=== PATIENT | male | born 1985 | race American Indian/Alaskan Native ===

== ENCOUNTER 2018-10-16 02:35 | Emergency (ER) | payer OTHER ==
[2018-10-16] MEDS ORDERED: NACL 0.9% 1000 ML 1,000 ML ONE (02:46)
[2018-10-16] MEDS ORDERED: XYLOCAINE 2%/EPI 1:100,000 INFILTRATI ONE ×2 (03:28→04:00)
[2018-10-16] MEDS ORDERED: NACL 0.9% 500 ML IR ONE (03:38)
[2018-10-16] MEDS ORDERED: MORPHINE ONE (03:42)
[2018-10-16] MEDS ORDERED: MORPHINE IV ONE (04:00)
[2018-10-16] MEDS ORDERED: NACL 0.9% IR ONE (04:00)
--- NOTE | 2018-10-16 04:16 | Emergency Department Report ---
- General Chief Complaint: Wound/Laceration Stated Complaint: RIGHT ARM LACERATION Time Seen by Provider: 10/16/18 04:10 Source: patient Mode of arrival: Ambulatory Limitations: No Limitations - History of Present Illness Initial Comments: 33 y/o male present to the ER for laceration to right forearm and upper arm. Patient was moving a glass table and tripped . Patient ahs no PMH, no medication on a daily basics and NKDA. Patient is not sure of his last tetanus vaccine. - Related Data Previous Rx's Medication Instructions Recorded Last Taken Type HYDROcodone/ACETAMINOPHEN [[place] 1 each PO Q6H #6 tablet 10/16/18 Unknown Rx 5-325 Tablet] Ibuprofen [Motrin 600 MG tab] 600 mg PO Q8H PRN #21 tablet 10/16/18 Unknown Rx cephALEXin [Keflex] 500 mg PO Q12HR #20 cap 10/16/18 Unknown Rx Allergies Allergy/AdvReac Type Severity Reaction Status Date / Time No Known Allergies Allergy Verified 10/16/18 02:43 ED Review of Systems ROS: Stated complaint: RIGHT ARM LACERATION Other details as noted in HPI ED Past Medical Hx - Past Medical History Previous Medical History?: No - Surgical History Past Surgical History?: No - Social History Smoking Status: Current Some Day Smoker Substance Use Type: Alcohol, Marijuana - Medications Home Medications: Home Medications Medication Instructions Recorded Confirmed Last Taken Type HYDROcodone/ACETAMINOPHEN [[place] 1 each PO Q6H #6 tablet 10/16/18 Unknown Rx 5-325 Tablet] Ibuprofen [Motrin 600 MG tab] 600 mg PO Q8H PRN #21 tablet 10/16/18 Unknown Rx cephALEXin [Keflex] 500 mg PO Q12HR #20 cap 10/16/18 Unknown Rx ED Physical Exam - General Limitations: No Limitations General appearance: alert, in no apparent distress - Head Head exam: Present: atraumatic, normocephalic - Eye Eye exam: Present: EOMI - ENT ENT exam: Present: mucous membranes moist - Neck Neck exam: Present: normal inspection - Respiratory Respiratory exam: Present: normal lung sounds bilaterally. Absent: respiratory distress - Neurological Exam Neurological exam: Present: alert, oriented X3 - Psychiatric Psychiatric exam: Present: normal affect, normal mood - Skin Skin exam: Present: dry, intact, normal color. Absent: rash - Expanded Skin Exam Expanded Type of lesion: Present: laceration (2 laceration on right hand. ) Distribution of rash: RUE Description of rash: Present: size (5 cm on upper dorsum and 5 cm on right forearm. Active bleeding . ) ED Course Vital Signs 10/16/18 03:46 Temperature 98.1 F Pulse Rate 83 Respiratory 17 Rate O2 Sat by Pulse 97 Oximetry - Laceration /Wound Repair Right Upper Arm Wound Location: upper extremity (right) Wound Length (cm): 5 Wound's Depth, Shape: into muscle, linear Wound Explored: no foreign body removed Betadine Prep?: Yes Anesthesia: Lidocaine w/ Epi Wound Repaired With: sutures Suture Size/Type: 3:0, proline Number of Sutures: 7 Sterile Dressing Applied?: Yes Progress: patient tolerated well Right Arm Wound Location: upper extremity (right) Wound Length (cm): 4 Wound's Depth, Shape: into muscle, linear Wound Explored: no foreign body removed Irrigated w/ Saline (ccs): 250 Betadine Prep?: Yes Volume Anesthetic (ccs): 12 Wound Debrided: minimal Suture Size/Type: 3:0, proline Number of Sutures: 8 Layer Closure?: No Sterile Dressing Applied?: Yes Progress: patient tolerated well. ED Medical Decision Making - Radiology Data Radiology results: report reviewed Patient: JESSE BAUER MR#: [id number] : 1985 Acct:[id number] Age/Sex: 33 / M ADM Date: 10/16/18 Loc: ED Attending Dr: Ordering Physician: PATSY ALMODOVAR Date of Service: 10/16/18 Procedure(s): XR humerus 2+V RT Accession Number(s): [id number] cc: PATSY ALMODOVAR Fluoro Time In Minutes: PROCEDURE: RIGHT HUMERUS TECHNIQUE: RIGHT humerus radiographs, AP and lateral views. CPT 34182 HISTORY: Trauma COMPARISONS: None . FINDINGS: Fracture (s) and/or Dislocation(s): None . Joint space(s): Normal . Soft tissues: Normal . Bone mineralization: Normal . Foreign bodies: None . IMPRESSION: Normal Examination . This document is electronically signed by Araceli Ortega MD., October 16 2018 04:15:40 AM ET Transcribed By: CO Dictated By: ARACELI ORTEGA MD Electronically Authenticated By: ARACELI ORTEGA MD Signed Date/Time: 10/16/188 DD/ 9 TD/TT: 10/16/18410 Patient: JESSE BAUER MR#: [id number] : 1985 Acct:[id number] Age/Sex: 33 / M ADM Date: 10/16/18 Loc: ED Attending Dr: Ordering Physician: PATSY ALMODOVAR Date of Service: 10/16/18 Procedure(s): XR forearm RT Accession Number(s): [id number] cc: PATSY ALMODOVAR Fluoro Time In Minutes: PROCEDURE: RIGHT FOREARM TECHNIQUE: RIGHT forearm radiographs, AP and lateral views. CPT 76241 HISTORY: Trauma COMPARISONS: None . FINDINGS: Fracture (s) and/or Dislocation(s): None . Joint space(s): Normal . Soft tissues: There is soft tissue swelling and laceration of the proximal forearm. . Bone mineralization: Normal . Foreign bodies: None . IMPRESSION: There is no acute bony abnormality. .There is soft tissue swelling and laceration of the proximal forearm. . This document is electronically signed by Araceli Ortega MD., October 16 2018 04:14:13 AM ET Transcribed By: CO Dictated By: ARACELI ORTEGA MD Electronically Authenticated By: ARACELI ORTEGA MD Signed Date/Time: 10/16/18415 DD/ 8 TD/TT: 10/16/18409 Critical care attestation.: If time is entered above; I have spent that time in minutes in the direct care of this critically ill patient, excluding procedure time. ED Disposition Clinical Impression: Laceration of forearm Qualifiers: Encounter type: initial encounter Laterality: right Qualified Code(s): S51.811A - Laceration without foreign body of right forearm, initial encounter Laceration of arm, right, complicated Qualifiers: Encounter type: initial encounter Qualified Code(s): S41.111A - Laceration without foreign body of right upper arm, initial encounter Disposition: - TO HOME OR SELFCARE Is pt being admited?: No Does the pt Need Aspirin: No Condition: Stable Instructions: Laceration (ED), Suture Care (ED) Additional Instructions: Please take and complete antibiotics and pain medication as prescribed. Return to ER for follow up on Monday. Prescriptions: cephALEXin [Keflex] 500 mg PO Q12HR #20 cap Ibuprofen [Motrin 600 MG tab] 600 mg PO Q8H PRN #21 tablet PRN Reason: Pain HYDROcodone/ACETAMINOPHEN [[place]asper 5-325 Tablet] 1 each PO Q6H #6 tablet Referrals: PRIMARY CARE,MD [Primary Care Provider] - 3-5 Days Forms: Work/School Release Form(ED), Accompanied Note
[2018-10-16] MEDS ORDERED: PERCOCET 5/325 PO ONE ×2 (04:23→04:24)
[2018-10-16] MEDS ORDERED: ZOFRAN ONE (05:32)
[2018-10-16 05:51] VITALS: BP 98/61
[2018-10-16] MEDS ORDERED: ZOFRAN IV ONE (06:24)
== END 2018-10-16 06:15 | disposition home or self-care (01) ==
LOC: ED 02:35
DX: S41.111A Laceration without foreign body of right upper arm, initial encounter (principal); S51.811A Laceration without foreign body of right forearm, initial encounter; F17.200 Nicotine dependence, unspecified, uncomplicated; F12.10 Cannabis abuse, uncomplicated; W25.XXXA Contact with sharp glass, initial encounter; Y93.01 Activity, walking, marching and hiking; Y92.89 Other specified places as the place of occurrence of the external cause; Y99.8 Other external cause status
CPT/HCPCS: 12004; 73060; 73090; 96374; 99283; J2270; J2405; J7030

== ENCOUNTER 2018-10-24 22:49 | Emergency (ER) | payer SELFPAY ==
[2018-10-24 23:30] VITALS: BP 109/57
--- NOTE | 2018-10-25 01:22 | Emergency Department Report ---
- General Chief Complaint: Laceration/Recheck/Suture Stated Complaint: SUTURE REMOVAL Time Seen by Provider: 10/25/18 00:50 Source: patient Mode of arrival: Ambulatory Limitations: No Limitations - History of Present Illness Initial Comments: Patient is a 31-year-old male with no past medical history who presents to the ED for suture removal from a right forearm laceration that he had over 12 days ago. Patient states that he was told to come back today for suture removal. Patient is still currently taking prophylactic antibiotics. Patient denies numbness, tingling or weakness of that forearm, dizziness, fever, chills, nausea or vomiting. -: Sudden, days(s) (10) Location: other (right foreamr) Extremity Location: Right: Elbow, Forearm Place: home Patient Tetanus UTD: Yes Context: accidental, other (glass table fell on his right forearm over 12 days diaz) Associated Symptoms: pain. denies: loss of feeling/numbness, suspect foreign body present, unable to move injured part, weakness followed by dizziness, nausea/vomiting Treatments Prior to Arrival: NSAIDS - Related Data Previous Rx's Medication Instructions Recorded Last Taken Type HYDROcodone/ACETAMINOPHEN [[place] 1 each PO Q6H #6 tablet 10/16/18 Unknown Rx 5-325 Tablet] Ibuprofen [Motrin 600 MG tab] 600 mg PO Q8H PRN #21 tablet 10/16/18 Unknown Rx cephALEXin [Keflex] 500 mg PO Q12HR #20 cap 10/16/18 Unknown Rx Allergies Allergy/AdvReac Type Severity Reaction Status Date / Time No Known Allergies Allergy Verified 10/16/18 02:43 ED Review of Systems ROS: Stated complaint: SUTURE REMOVAL Other details as noted in HPI Comment: All other systems reviewed and negative Constitutional: no symptoms reported, see HPI. denies: chills, diaphoresis, fever, malaise, weakness, other Eyes: as per HPI. denies: eye pain, eye discharge, vision change ENT: as per HPI. denies: ear pain, throat pain, dental pain, hearing loss, epistaxis Respiratory: no symptoms reported, see HPI. denies: cough, orthopnea, shortness of breath, SOB with exertion, SOB at rest Cardiovascular: as per HPI. denies: chest pain, palpitations, dyspnea on exertion, orthopnea, syncope, paroxysmal nocturnal dyspnea Endocrine: no symptoms reported, see HPI. denies: excessive sweating, flushing, intolerance to cold, increased hunger, increased thirst, increased urine, unexplained weight gain Gastrointestinal: as per HPI. denies: abdominal pain, nausea, vomiting, diarrhea, hematochezia Genitourinary: as per HPI. denies: urgency, dysuria, frequency, hematuria, discharge, testicular pain, testicular mass Musculoskeletal: as per HPI, other (mild right forearm pain from a sutured laceration wound). denies: back pain Skin: as per HPI, other (Sutured right forearm laceration wounds with mild pain). denies: rash, lesions, change in color, change in hair/nails Neurological: as per HPI. denies: headache, weakness, numbness, paresthesias, confusion, abnormal gait, vertigo Psychiatric: as per HPI Hematological/Lymphatic: as per HPI ED Past Medical Hx - Past Medical History Previous Medical History?: No - Surgical History Past Surgical History?: No - Social History Smoking Status: Current Every Day Smoker Substance Use Type: None - Medications Home Medications: Home Medications Medication Instructions Recorded Confirmed Last Taken Type HYDROcodone/ACETAMINOPHEN [[place] 1 each PO Q6H #6 tablet 10/16/18 Unknown Rx 5-325 Tablet] Ibuprofen [Motrin 600 MG tab] 600 mg PO Q8H PRN #21 tablet 10/16/18 Unknown Rx cephALEXin [Keflex] 500 mg PO Q12HR #20 cap 10/16/18 Unknown Rx ED Physical Exam - General Limitations: No Limitations General appearance: alert, in no apparent distress - Head Head exam: Present: atraumatic, normocephalic, normal inspection - Eye Eye exam: Present: normal appearance, PERRL, EOMI Pupils: Present: normal accommodation - ENT ENT exam: Present: normal exam, normal orophraynx, mucous membranes moist, TM's normal bilaterally, normal external ear exam - Neck Neck exam: Present: normal inspection, full ROM - Respiratory Respiratory exam: Present: normal lung sounds bilaterally. Absent: respiratory distress, wheezes, rales, rhonchi, chest wall tenderness, accessory muscle use, decreased breath sounds, prolonged expiratory - Cardiovascular Cardiovascular Exam: Present: regular rate, normal rhythm, normal heart sounds - GI/Abdominal GI/Abdominal exam: Present: soft, normal bowel sounds. Absent: distended, tenderness, guarding, hyperactive bowel sounds, hypoactive bowel sounds, mass, pulsatile mass - Rectal Rectal exam: Present: deferred - Extremities Exam Extremities exam: Present: normal inspection, full ROM, tenderness (mildly tender right forearm due to sutured laceration wounds, no sign of infection), normal capillary refill. Absent: pedal edema, joint swelling, calf tenderness - Back Exam Back exam: Present: normal inspection, full ROM. Absent: tenderness, CVA tenderness (R), CVA tenderness (L), muscle spasm, paraspinal tenderness, vertebral tenderness, rash noted - Neurological Exam Neurological exam: Present: alert, oriented X3, CN II-XII intact, normal gait, reflexes normal - Psychiatric Psychiatric exam: Present: normal affect - Skin Skin exam: Present: warm, dry, normal color, other (Healing sutured laceration wounds on right forearm with mild tenderness) ED Course Vital Signs 10/24/18 23:28 Temperature 98.6 F Pulse Rate 70 Respiratory 18 Rate Blood Pressure 109/57 O2 Sat by Pulse 98 Oximetry - Reevaluation(s) Reevaluation #1: 10/25/18 06:48 Patient is alert and oriented 3 and is not in distress. Right forearm recently sutured laceration wounds are healing well with no sign of active infection. The sutures were removed successfully, with a total of 9 sutures removed. Patient was discharged home after the wound was dressed appropriately. Patient advised to return to the ED immediately if symptoms get worse. Meanwhile patient was advised to continue taking her previously prescribed antibiotics and pain medication as needed until the end. ED Medical Decision Making - Medical Decision Making Patient is alert and oriented 3 and is not in distress. Right forearm recently sutured laceration wounds are healing well with no sign of active infection. The sutures were removed successfully, with a total of 9 sutures removed. Patient was discharged home after the wound was dressed appropriately. Patient advised to return to the ED immediately if symptoms get worse. Meanwhile patient was advised to continue taking her previously prescribed antibiotics and pain medication as needed until the end. - Differential Diagnosis Wound recheck; suture removal, right forearm laceration Critical care attestation.: If time is entered above; I have spent that time in minutes in the direct care of this critically ill patient, excluding procedure time. ED Disposition Clinical Impression: Encounter for re-check of laceration wound, Encounter for removal of sutures Disposition: - TO HOME OR SELFCARE Is pt being admited?: No Does the pt Need Aspirin: No Condition: Stable Instructions: Laceration (ED), Acute Wound Care (ED) Additional Instructions: Continue taking the medications that were previously prescribed, follow up with your primary care physician in 5-7 days for reevaluation. Return to the ED immediately if symptoms get worse. Referrals: THELMA MARQUEZ MD [Primary Care Provider] - 3-5 Days Time of Disposition: 01:21 Print Language: KAZAKH
== END 2018-10-25 01:25 | disposition home or self-care (01) ==
LOC: ED 22:49
DX: Z48.01 Encounter for change or removal of surgical wound dressing (principal); T14.8XXD Other injury of unspecified body region, subsequent encounter